=== PATIENT | male | born 1970 | race African-American/Black ===

== ENCOUNTER 2016-10-30 19:56 | Emergency (ER) | payer OTHER ==
--- NOTE | 2016-10-30 21:23 | ED CLINICAL REPORT ---
Clinical Report - Physicians/Mid Levels [facility] [address] [place] [address] 10/30/2016 19:57 Patient: SOFIA ROBERSON Time Seen: 20:03. Arrived- By private vehicle. Historian- patient. HISTORY OF PRESENT ILLNESS Chief Complaint: DYSPNEA and HISTORY OF ASTHMA. This started today and is still present. It was abrupt in onset and has been constant. The dyspnea is described as moderate. He has had dyspnea at rest. The patient has had a cough. No chest pain or discomfort. See nurses notes for current asthma threapy. Asthma triggers: allergies and exercise. Takes asthma medications. Similar symptoms previously: REVIEW OF SYSTEMS No chills, fever, calf pain, chest pain or pedal edema. No palpitations, abdominal pain, constipation, diarrhea or nausea. No vomiting or urinary problems. All systems otherwise negative, except as recorded above. PAST HISTORY Problems: Otitis Media. Hypertension. Allergic Rhinitis. Back Pain. Bronchitis. Asthma. Additional Surgeries: Biopsy neck lymph node. Lap band. Medications: Insulin. Aspirin Oral (Tablet 81 mg) 1 tablet, daily. Januvia Oral, daily. Carvedilol Phosphate ER Oral, daily. Albuterol Sulfate Inhalation 2 puffs, PRN. Allergies: No Known Drug Allergy. SOCIAL HISTORY Never smoker. Occasional alcohol use. No drug use. FAMILY HISTORY Denies family medical history. ADDITIONAL NOTES The nursing notes have been reviewed. PHYSICAL EXAM Vital Signs: 10/30/2016 20:02 BP: 168/105. HR: 105. RR: 20. O2 saturation: 96%. Temp: 98.8 F. Pain level now: 0/10. Have been reviewed. Appearance: Alert. Eyes: Pupils equal, round and reactive to light. ENT: Pharynx normal. Uvula midline. Neck: Normal inspection. Neck supple. No JVD. CVS: Normal heart rate and rhythm. Heart sounds normal. Respiratory: Prolonged expirations. Decreased air movement. Wheezing present. Abdomen: Soft and nontender. No organomegaly. Back: Normal inspection. Skin: Skin warm and dry. Normal skin color. Normal skin turgor. Extremities: Extremities exhibit normal ROM. No calf tenderness. No lower extremity edema. PROGRESS AND PROCEDURES Course of Care: Symptoms better. Vital signs have been reviewed. Physical exam findings are improved. Alert. No acute distress. Breath sounds normal. No respiratory distress. Normal heart rate and rhythm. Heart sounds normal. Abdomen soft and nontender. Skin warm and dry. Patient/family counseled. Old medical records ordered. Disposition: Discharged. Condition: stable. CLINICAL IMPRESSION Asthma with an acute exacerbation. Hypertension. INSTRUCTIONS Warnings: Further evaluation is necessary. GENERAL WARNINGS: Return or contact your physician immediately if your condition worsens or changes unexpectedly, if not improving as expected, or if other problems arise. Your Current Medications: CONTINUE TAKING THE FOLLOWING MEDICATIONS: Albuterol Sulfate Inhalation : 2 puffs PRN. Aspirin Oral : Tablet 81 mg, 1 tablet daily. Carvedilol Phosphate ER Oral : daily. Insulin*. Januvia Oral : daily. Prescription Medications: Prednisone 20 mg: take 3 orally every day for 4 days. No refills. (12 pills to complete the course that was started in the emergency room. Start this prescription on October 31, 2016 as discussed.) Follow-up: Follow up with your doctor in four days. Call for an appointment. Understanding of the discharge instructions verbalized by patient. (Electronically signed by Radames Mcmillan MD 11/01/2016 0:15)
--- NOTE | 2016-10-30 21:23 | ED NURSING NOTES ---
Clinical Report - Nurses [place] [address] [place] [address] 10/30/2016 19:57 Patient: SOFIA ROBERSON TRIAGE Triage time 20:02. Acuity: LEVEL 3. Chief Complaint: SHORTNESS OF BREATH and DIFFICULTY BREATHING. --20:11 Kitty Ellsworth R.N. 20:02 10/30/16. BP: 168/105. HR: 105 (regular and tachycardic). RR: 20 (regular and unlabored). O2 saturation: 96% on room air. Temp: 98.8 F. Pain level now: 0/10. --20:11 Kitty Ellsworth R.N. Weight: 102 kg stated. Height/Length: 66 inches Per Patient. BMI: 36.3. --20:03 Kitty Ellsworth R.N. Medications Albuterol Sulfate Inhalation 2 puffs, PRN. --20:06 Kitty Ellsworth R.N. Carvedilol Phosphate ER Oral, daily. --20:06 Kitty Ellsworth R.N. Januvia Oral, daily. --20:07 Kitty Ellsworth R.N. Aspirin Oral (Tablet 81 mg) 1 tablet, daily. --20:08 Kitty Ellsworth R.N. Insulin. --20:09 Kitty Ellsworth R.N. Allergies No Known Drug Allergy. --20:09 Kitty Ellsworth R.N. History Arrived by private vehicle. Historian: patient. Unaccompanied. Primary physician (elena). This started just prior to arrival. ( tiff shannon, hx of asthma became SOB, sneezing and coughing, able to speak in full sentences). Treatment [employer]: (albuterol inhaler). PAST MEDICAL HX: Immunizations: up-to-date. SOCIAL HX: Never smoker. Occasional alcohol use. No drug use. No infectious disease exposure. ABUSE ASSESSMENT: No report of abuse. SELF HARM ASSESSMENT: A self harm assessment was performed. The patient answered "no" to the question "Have you recently felt down, depressed, or hopeless?", "Have you noticed less interest or pleasure in doing things?", "Do you have thoughts of harming or killing yourself?", "Are you here because you tried to hurt yourself?", "Have you ever tried to hurt yourself before today?", "Have you recently had thoughts about harming or killing others?" and "Do you have any dangerous items in your possession?". FALL RISK ASSESSMENT: Fall risk assessment completed. No fall risk identified. NUTRITIONAL RISK ASSESSMENT: The nutritional risk assessment revealed no deficiencies. FUNCTIONAL ASSESSMENT: Functional assessment: no impairments noted. LEARNING NEEDS ASSESSMENT: The learning needs assessment revealed no barriers. SKIN INTEGRITY ASSESSMENT: Skin integrity risk assessment completed. No skin integrity risk identified. --20:11 Kitty Ellsworth R.N. PROBLEMS: Otitis Media. Hypertension. Allergic Rhinitis. Back Pain. Bronchitis. Asthma. --20:09 Kitty Ellsworth R.N. ADDITIONAL SURGERIES: Biopsy neck lymph node. Lap band. --20:09 Kitty Ellsworth R.N. Interventions ID band on patient. --20:11 Kitty Ellsworth R.N. PHYSICAL ASSESSMENT Ambulatory to room. GENERAL / NEURO / PSYCH: Alert. Oriented X 4. Appears in no acute distress. HEENT: Mucous membranes are pink. RESPIRATORY: No respiratory distress. Respirations not labored. Chest nontender. Decreased breath sounds in the bases bilaterally. CVS: Normal sinus rhythm noted. Capillary refill less than 2 seconds. GI / : Abdomen soft and nontender. Bowel sounds within normal limits. SKIN: Skin is warm and dry. Normal skin turgor. --20:11 Kitty Ellsworth R.N. NURSING PROGRESS NOTES Patient gowned. Reassurance given to the patient. Two patient identifiers checked. Call light placed in reach. Side rails up x 1. Bed placed in lowest position. Brakes of bed on. --20:12 Kitty Ellsworth R.N. Patient ready for evaluation- chart flagged. --20:12 Kitty Ellsworth R.N. 20:47 10/30/2016 Prednisone PO Tablets 60 mg given. Allergies verified and confirmed 5 rights. --20:47 Kitty Ellsworth R.N. 20:47 10/30/2016 Clonidine PO Tablets 0.2 mg given. Allergies verified and confirmed 5 rights. --20:47 Kitty Ellsworth R.N. The patient reports no complaints and he is calm and resting quietly. Overall patient status is improved- he states feels better. ( Resp at bedside for breathing treatment). RESPIRATORY: No respiratory distress. Decreased breath sounds in the bases bilaterally. SKIN: Skin is warm and dry. Skin color within normal limits. --20:53 Kitty Ellsworth R.N. 20:45 10/30/16. BP: 158/98 taken on the left arm, while lying. HR: 97 (regular). RR: 18. O2 saturation: 97% on room air. Temp: deferred. Pain level now: 0/10. --20:53 Kitty Ellsworth R.N. 20:50 10/30/2016 Duoneb (Ipratropium-Albuterol) Neb TX Nebulizer 1 unit dose given. Given by the respiratory therapist. Allergies verified and confirmed 5 rights. --20:54 Kitty Ellsworth R.N. The patient reports no complaints. Overall patient status is improved- he states feels better. RESPIRATORY: No respiratory distress. Breath sounds normal. SKIN: Skin is warm and dry. Skin color within normal limits. --21:23 Kitty Ellsworth R.N. 21:22 10/30/16. BP: 164/96 taken on the left arm, while lying. HR: 82 (regular and normal rate). RR: 18 (regular and unlabored). O2 saturation: 100% on room air. Temp: deferred. --21:23 Kitty Ellsworth R.N. DISPOSITION / DISCHARGE Departure time: 2126. Condition at departure: improved and stable. No learning barriers present. Discharge instructions provided and reviewed with the patient. Reviewed medication(s) side effects, precautions, dosing and course information. Prescription(s) given to the patient. Patient verbalized understanding. Written instructions provided in Albanian. The patient was discharged home and unaccompanied at time of discharge. He left the Emergency Department ambulatory and via private vehicle. --21:34 Kitty Ellsworth R.N. 21:31 10/30/16. BP: deferred. HR: deferred. RR: deferred. O2 saturation: deferred. Temp: deferred. Pain level now deferred. --21:34 Kitty Ellsworth R.N. Locked/Released at 10/30/2016 21:34 by Kitty Ellsworth R.N.
--- NOTE | 2016-10-30 21:23 | ED ORDER SUMMARY ---
..... Patient: SOFIA ROBERSON OrderSheet [facility] VisitID: [id number] [place] [address] 46y, M Registration Date/Time: 10/30/2016 ORDER SHEET Weight: 102.0 kg (stated) Allergies: No Known Drug Allergy GENERAL ORDERS: RT Evaluation Stat (20:38 10/30/2016 Sabrina CLINTON) (Ack 20:38 RKaruga) (20:47 Sandra R.N.) MEDICATION ORDERS: DuoNeb Neb Tx 1 unit dose (NOW) (20:37 10/30/2016 Sabrina CLINTON) (20:54 CBjairo R.N.) Prednisone PO 60 mg (NOW) (20:37 10/30/2016 Sabrina CLINTON) (Ack 20:43 Sandra R.N.) (20:47 Sandra R.N.) Clonidine PO 0.2 mg (NOW) (20:37 10/30/2016 Sabrina CLINTON) (Ack 20:43 Sandra R.N.) (20:47 Sandra R.N.) IV FLUIDS: ORDER SHEET NOTES: [Electronically signed by Kitty Ellsworth R.N. (21:34 10/30/2016)] [Electronically signed by Radames Mcmillan MD (00:15 11/01/2016)] [Electronically locked/signed by Kitty Ellsworth R.N. (21:34 10/30/2016)]
--- NOTE | 2016-10-30 21:23 | ED ORDER SUMMARY ---
..... Patient: SOFIA ROBERSON OrderSheet [facility] VisitID: [id number] [place] [address] 46y, M Registration Date/Time: 10/30/2016 ORDER SHEET Weight: 102.0 kg (stated) Allergies: No Known Drug Allergy GENERAL ORDERS: RT Evaluation Stat (20:38 10/30/2016 Sabrina CLINTON) (Ack 20:38 RKaruga) (20:47 Sandra R.N.) MEDICATION ORDERS: DuoNeb Neb Tx 1 unit dose (NOW) (20:37 10/30/2016 Sabrina CLINTON) (20:54 CBjairo R.N.) Prednisone PO 60 mg (NOW) (20:37 10/30/2016 Sabrina CLINTON) (Ack 20:43 Sandra R.N.) (20:47 Sandra R.N.) Clonidine PO 0.2 mg (NOW) (20:37 10/30/2016 Sabrina CLINTON) (Ack 20:43 Sandra R.N.) (20:47 Sandra R.N.) IV FLUIDS: ORDER SHEET NOTES: [Electronically signed by Kitty Ellsworth R.N. (21:34 10/30/2016)] [Electronically signed by Radames Mcmillan MD (00:15 11/01/2016)] [Electronically locked/signed by Kitty Ellsworth R.N. (21:34 10/30/2016)]
--- NOTE | 2016-10-30 21:23 | ED CLINICAL REPORT ---
Clinical Report - Physicians/Mid Levels [facility] [address] [place] [address] 10/30/2016 19:57 Patient: SOFIA ROBERSON Time Seen: 20:03. Arrived- By private vehicle. Historian- patient. HISTORY OF PRESENT ILLNESS Chief Complaint: DYSPNEA and HISTORY OF ASTHMA. This started today and is still present. It was abrupt in onset and has been constant. The dyspnea is described as moderate. He has had dyspnea at rest. The patient has had a cough. No chest pain or discomfort. See nurses notes for current asthma threapy. Asthma triggers: allergies and exercise. Takes asthma medications. Similar symptoms previously: REVIEW OF SYSTEMS No chills, fever, calf pain, chest pain or pedal edema. No palpitations, abdominal pain, constipation, diarrhea or nausea. No vomiting or urinary problems. All systems otherwise negative, except as recorded above. PAST HISTORY Problems: Otitis Media. Hypertension. Allergic Rhinitis. Back Pain. Bronchitis. Asthma. Additional Surgeries: Biopsy neck lymph node. Lap band. Medications: Insulin. Aspirin Oral (Tablet 81 mg) 1 tablet, daily. Januvia Oral, daily. Carvedilol Phosphate ER Oral, daily. Albuterol Sulfate Inhalation 2 puffs, PRN. Allergies: No Known Drug Allergy. SOCIAL HISTORY Never smoker. Occasional alcohol use. No drug use. FAMILY HISTORY Denies family medical history. ADDITIONAL NOTES The nursing notes have been reviewed. PHYSICAL EXAM Vital Signs: 10/30/2016 20:02 BP: 168/105. HR: 105. RR: 20. O2 saturation: 96%. Temp: 98.8 F. Pain level now: 0/10. Have been reviewed. Appearance: Alert. Eyes: Pupils equal, round and reactive to light. ENT: Pharynx normal. Uvula midline. Neck: Normal inspection. Neck supple. No JVD. CVS: Normal heart rate and rhythm. Heart sounds normal. Respiratory: Prolonged expirations. Decreased air movement. Wheezing present. Abdomen: Soft and nontender. No organomegaly. Back: Normal inspection. Skin: Skin warm and dry. Normal skin color. Normal skin turgor. Extremities: Extremities exhibit normal ROM. No calf tenderness. No lower extremity edema. PROGRESS AND PROCEDURES Course of Care: Symptoms better. Vital signs have been reviewed. Physical exam findings are improved. Alert. No acute distress. Breath sounds normal. No respiratory distress. Normal heart rate and rhythm. Heart sounds normal. Abdomen soft and nontender. Skin warm and dry. Patient/family counseled. Old medical records ordered. Disposition: Discharged. Condition: stable. CLINICAL IMPRESSION Asthma with an acute exacerbation. Hypertension. INSTRUCTIONS Warnings: Further evaluation is necessary. GENERAL WARNINGS: Return or contact your physician immediately if your condition worsens or changes unexpectedly, if not improving as expected, or if other problems arise. Your Current Medications: CONTINUE TAKING THE FOLLOWING MEDICATIONS: Albuterol Sulfate Inhalation : 2 puffs PRN. Aspirin Oral : Tablet 81 mg, 1 tablet daily. Carvedilol Phosphate ER Oral : daily. Insulin*. Januvia Oral : daily. Prescription Medications: Prednisone 20 mg: take 3 orally every day for 4 days. No refills. (12 pills to complete the course that was started in the emergency room. Start this prescription on October 31, 2016 as discussed.) Follow-up: Follow up with your doctor in four days. Call for an appointment. Understanding of the discharge instructions verbalized by patient. (Electronically signed by Radames Mcmillan MD 11/01/2016 0:15)
--- NOTE | 2016-11-01 00:16 | ED DISCHARGE INSTRUCTIONS ---
Patient: SOFIA ROBERSON General Instructions [facility] VisitID: [id number] [place] [address] 46y, M Registration Date/Time: 10/30/2016 Asthma with an acute exacerbation. Hypertension. INSTRUCTIONS Warnings: Further evaluation is necessary. GENERAL WARNINGS: Return or contact your physician immediately if your condition worsens or changes unexpectedly, if not improving as expected, or if other problems arise. Your Current Medications: CONTINUE TAKING THE FOLLOWING MEDICATIONS: Albuterol Sulfate Inhalation : 2 puffs PRN. Aspirin Oral : Tablet 81 mg, 1 tablet daily. Carvedilol Phosphate ER Oral : daily. Insulin*. Januvia Oral : daily. Prescription Medications: Prednisone 20 mg: take 3 orally every day for 4 days. No refills. (12 pills to complete the course that was started in the emergency room. Start this prescription on October 31, 2016 as discussed.) Follow-up: Follow up with your doctor in four days. Call for an appointment. Understanding of the discharge instructions verbalized by patient. ADDITIONAL INFORMATION Asthma [Adult] Asthma is a disease where the small air passages within the lung go into spasm and restrict the flow of air. Inflammation and swelling of the airways cause further restriction. During an acute asthma attack, these factors cause difficulty breathing, wheezing, cough and chest tightness. An asthma attack can be triggered by many things. Common triggers include the common cold, bronchitis, pneumonia, irritants such as smoke or pullutants in the air, emotional upset and heavy exercise. Inmany adults with asthma, allergies todust, mold, pollen and animal dander can cause an asthma attack. Skipping doses of daily asthma medicine can also bring on an asthma attack. Asthma can be controlled with proper medicines and decreased exposure to known allergens. Home Care: Take prescribed medicine exactly at the times advised. If you have a hand-held inhaler or aerosol breathing medicine, do not use it more than once every four hours, unless told to do so. (If you need this medicine more than every four hours, you may need to return to the Emergency Room.) If prescribed an antibiotic or prednisone, take all of the medicine even if you are feeling better after a few days. Do not smoke. Avoid being exposed to the smoke of others. Some persons with asthma have worsening of their symptoms when they take aspirin and non-steroidal medicines like ibuprofen (Motrin, Advil) and naproxen (Aleve, Naprosyn). Talk to your doctor if you think this may apply to you. Acetaminophen (Tylenol)should be safe to use. Follow Up with your doctor, or as advised by our staff. Always bring all of your current medicines with you for your doctor to see. If you do not already have one, talk to your doctor about developing a personalized "Asthma Action Plan." [NOTE: A pneumococcal vaccine and yearly flu shot (every fall) are recommended. Ask your doctor about this.] Get Prompt Medical Attention if any of the following occur: Increased wheezing or shortness of breath Need to use your inhalers more often than usual without relief Fever of 100.4F (38C) or higher, or as directed by your healthcare provider Coughing up lots of dark-colored or bloody sputum (mucus) Chest pain with each breath You do not start to improve within 24 hours Call 911 If Any Of The Following Occur : Trouble walking or talking because of shortness of breath If you use a peak flow meter andyou are still in the red zone (less than 50 percent) 15 minutes after using inhaler medication Lips or fingernails turning fraser or blue Hypertension, Out Of Control (Established) Your blood pressure was unusually high today. This can occur as a result of missing doses of your blood pressure medicine. Some asthma inhalers, decongestants, diet pills, and street drugs such as cocaine and amphetamine can worsen hypertension. An increase in body weight, increase in salt intake, smoking, and caffeine are other causes. Emotional upset or acute pain can cause a sudden rapid rise in blood pressure which may return to normal after a period of rest. A normal blood pressure is less than 140/90. The first (top) number is the systolic pressure. The second (bottom) number is the diastolic pressure. Hypertension exists when either the top number is 140 or higher, OR the bottom number is 90 or higher on repeated measurements. Home Care: All patients with high blood pressure should do the following to lower their pressure. If you are on blood pressure medicines, then these methods may reduce or eliminate your need for medicines in the future. Begin a weight-loss program if you are overweight. Reduce your salt intake. Avoid high-salt foods (olives, pickles, smoked meats, salted potato chips, etc.). Do not add salt to your food at the table. Use only small amounts of salt when cooking. Begin an exercise program. Discuss with your doctor what type of exercise program would be best for you. It doesnt have to be difficult. Even brisk walking for 20 minutes3 times a week is a good form of exercise. Avoid medicines which contain heart stimulants. This includes many cold and sinus decongestant pills and sprays as well as diet pills. Check the warnings about hypertension on the label. Stimulants such as amphetamine or cocaine could be lethal for someone with hypertension. Never take these. Limit your caffeine intake or switch to decaf. Stop smoking. If you are a long-time smoker, this can be hard. Enroll in a stop-smoking program to improve your chance of success. Talk to your physician about ways to improve your chance of success. Learning how to handle stress better is an important part of any program to lower blood pressure. Learn about relaxation methods such as meditation, yoga, or biofeedback. If medicines were prescribed, take them exactly as directed. Missing doses may cause your blood pressure to get out of control. Consider buying an automatic blood pressure machine (available at many pharmacies). Use this to monitor your blood pressure and report to your doctor. Follow Up: Regular visits to your own doctor for blood pressure checks and medicine adjustment is an important part of your care. Make a follow-up appointment as directed by our staff. Get Prompt Medical Attention if any of the following occur: Chest, arm, shoulder, neck, or upper back pain Shortness of breath Severe headache Throbbing or rushing sound in the ears Nosebleed Extreme drowsiness, confusion, or fainting Dizziness or vertigo (dizziness with spinning sensation) Weakness of an arm or leg or one side of the face Difficulty with speech or vision Prednisone Oral tablet What is this medicine? PREDNISONE (PRED ni sone) is a corticosteroid. It is commonly used to treat inflammation of the skin, joints, lungs, and other organs. Common conditions treated include asthma, allergies, and arthritis. It is also used for other conditions, such as blood disorders and diseases of the adrenal glands. How should I use this medicine? Take this medicine by mouth with a glass of water. Follow the directions on the prescription label. Take this medicine with food. If you are taking this medicine once a day, take it in the morning. Do not take more medicine than you are told to take. Do not suddenly stop taking your medicine because you may develop a severe reaction. Your doctor will tell you how much medicine to take. If your doctor wants you to stop the medicine, the dose may be slowly lowered over time to avoid any side effects. Talk to your inter com servicer regarding the use of this medicine in children. Special care may be needed. What side effects may I notice from receiving this medicine? Side effects that you should report to your doctor or health toddler caregiver as soon as possible: allergic reactions like skin rash, itching or hives, swelling of the face, lips, or tongue changes in emotions or moods changes in vision depressed mood eye pain fever or chills, cough, sore throat, pain or difficulty passing urine increased thirst swelling of ankles, feet Side effects that usually do not require medical attention (report to your doctor or health toddler caregiver if they continue or are bothersome): confusion, excitement, restlessness headache nausea, vomiting skin problems, acne, thin and shiny skin trouble sleeping weight gain What may interact with this medicine? Do not take this medicine with any of the following medications: metyrapone mifepristone This medicine may also interact with the following medications: aminoglutethimide amphotericin B aspirin and aspirin-like medicines barbiturates certain medicines for diabetes, like glipizide or glyburide cholestyramine cholinesterase inhibitors cyclosporine digoxin diuretics ephedrine female hormones, like estrogens and control pills isoniazid ketoconazole NSAIDS, medicines for pain and inflammation, like ibuprofen or naproxen phenytoin rifampin toxoids vaccines warfarin What if I miss a dose? If you miss a dose, take it as soon as you can. If it is almost time for your next dose, talk to your doctor or health toddler caregiver. You may need to miss a dose or take an extra dose. Do not take double or extra doses without advice. Where should I keep my medicine? Keep out of the reach of children. Store at room temperature between 15 and 30 degrees C (59 and 86 degrees F). Protect from light. Keep container tightly closed. Throw away any unused medicine after the expiration date. What should I tell my health care provider before I take this medicine? They need to know if you have any of these conditions: [place]'s syndrome diabetes glaucoma heart disease high blood pressure infection (especially a virus infection such as chickenpox, cold sores, or herpes) kidney disease liver disease mental illness myasthenia gravis osteoporosis seizures stomach or intestine problems thyroid disease an unusual or allergic reaction to lactose, prednisone, other medicines, foods, dyes, or preservatives or trying to get breast-feeding What should I watch for while using this medicine? Visit your doctor or health toddler caregiver for regular checks on your progress. If you are taking this medicine over a prolonged period, carry an identification card with your name and address, the type and dose of your medicine, and your doctor's name and address. This medicine may increase your risk of getting an infection. Tell your doctor or health toddler caregiver if you are around anyone with measles or chickenpox, or if you develop sores or blisters that do not heal properly. If you are going to have surgery, tell your doctor or health toddler caregiver that you have taken this medicine within the last twelve months. Ask your doctor or health toddler caregiver about your diet. You may need to lower the amount of salt you eat. This medicine may affect blood sugar levels. If you have diabetes, check with your doctor or health toddler caregiver before you change your diet or the dose of your diabetic medicine. You have been given the following additional information: Asthma, Acute (Adult) Hypertension, Established, Out Of Control Prednisone Oral tablet (Electronically signed by Radames Mcmillan MD 11/01/2016 0:15)
--- NOTE | 2016-11-01 00:16 | ED DISCHARGE INSTRUCTIONS ---
Patient: SOFIA ROBERSON General Instructions [facility] VisitID: [id number] [place] [address] 46y, M Registration Date/Time: 10/30/2016 Asthma with an acute exacerbation. Hypertension. INSTRUCTIONS Warnings: Further evaluation is necessary. GENERAL WARNINGS: Return or contact your physician immediately if your condition worsens or changes unexpectedly, if not improving as expected, or if other problems arise. Your Current Medications: CONTINUE TAKING THE FOLLOWING MEDICATIONS: Albuterol Sulfate Inhalation : 2 puffs PRN. Aspirin Oral : Tablet 81 mg, 1 tablet daily. Carvedilol Phosphate ER Oral : daily. Insulin*. Januvia Oral : daily. Prescription Medications: Prednisone 20 mg: take 3 orally every day for 4 days. No refills. (12 pills to complete the course that was started in the emergency room. Start this prescription on October 31, 2016 as discussed.) Follow-up: Follow up with your doctor in four days. Call for an appointment. Understanding of the discharge instructions verbalized by patient. ADDITIONAL INFORMATION Asthma [Adult] Asthma is a disease where the small air passages within the lung go into spasm and restrict the flow of air. Inflammation and swelling of the airways cause further restriction. During an acute asthma attack, these factors cause difficulty breathing, wheezing, cough and chest tightness. An asthma attack can be triggered by many things. Common triggers include the common cold, bronchitis, pneumonia, irritants such as smoke or pullutants in the air, emotional upset and heavy exercise. Inmany adults with asthma, allergies todust, mold, pollen and animal dander can cause an asthma attack. Skipping doses of daily asthma medicine can also bring on an asthma attack. Asthma can be controlled with proper medicines and decreased exposure to known allergens. Home Care: Take prescribed medicine exactly at the times advised. If you have a hand-held inhaler or aerosol breathing medicine, do not use it more than once every four hours, unless told to do so. (If you need this medicine more than every four hours, you may need to return to the Emergency Room.) If prescribed an antibiotic or prednisone, take all of the medicine even if you are feeling better after a few days. Do not smoke. Avoid being exposed to the smoke of others. Some persons with asthma have worsening of their symptoms when they take aspirin and non-steroidal medicines like ibuprofen (Motrin, Advil) and naproxen (Aleve, Naprosyn). Talk to your doctor if you think this may apply to you. Acetaminophen (Tylenol)should be safe to use. Follow Up with your doctor, or as advised by our staff. Always bring all of your current medicines with you for your doctor to see. If you do not already have one, talk to your doctor about developing a personalized "Asthma Action Plan." [NOTE: A pneumococcal vaccine and yearly flu shot (every fall) are recommended. Ask your doctor about this.] Get Prompt Medical Attention if any of the following occur: Increased wheezing or shortness of breath Need to use your inhalers more often than usual without relief Fever of 100.4F (38C) or higher, or as directed by your healthcare provider Coughing up lots of dark-colored or bloody sputum (mucus) Chest pain with each breath You do not start to improve within 24 hours Call 911 If Any Of The Following Occur : Trouble walking or talking because of shortness of breath If you use a peak flow meter andyou are still in the red zone (less than 50 percent) 15 minutes after using inhaler medication Lips or fingernails turning fraser or blue Hypertension, Out Of Control (Established) Your blood pressure was unusually high today. This can occur as a result of missing doses of your blood pressure medicine. Some asthma inhalers, decongestants, diet pills, and street drugs such as cocaine and amphetamine can worsen hypertension. An increase in body weight, increase in salt intake, smoking, and caffeine are other causes. Emotional upset or acute pain can cause a sudden rapid rise in blood pressure which may return to normal after a period of rest. A normal blood pressure is less than 140/90. The first (top) number is the systolic pressure. The second (bottom) number is the diastolic pressure. Hypertension exists when either the top number is 140 or higher, OR the bottom number is 90 or higher on repeated measurements. Home Care: All patients with high blood pressure should do the following to lower their pressure. If you are on blood pressure medicines, then these methods may reduce or eliminate your need for medicines in the future. Begin a weight-loss program if you are overweight. Reduce your salt intake. Avoid high-salt foods (olives, pickles, smoked meats, salted potato chips, etc.). Do not add salt to your food at the table. Use only small amounts of salt when cooking. Begin an exercise program. Discuss with your doctor what type of exercise program would be best for you. It doesnt have to be difficult. Even brisk walking for 20 minutes3 times a week is a good form of exercise. Avoid medicines which contain heart stimulants. This includes many cold and sinus decongestant pills and sprays as well as diet pills. Check the warnings about hypertension on the label. Stimulants such as amphetamine or cocaine could be lethal for someone with hypertension. Never take these. Limit your caffeine intake or switch to decaf. Stop smoking. If you are a long-time smoker, this can be hard. Enroll in a stop-smoking program to improve your chance of success. Talk to your physician about ways to improve your chance of success. Learning how to handle stress better is an important part of any program to lower blood pressure. Learn about relaxation methods such as meditation, yoga, or biofeedback. If medicines were prescribed, take them exactly as directed. Missing doses may cause your blood pressure to get out of control. Consider buying an automatic blood pressure machine (available at many pharmacies). Use this to monitor your blood pressure and report to your doctor. Follow Up: Regular visits to your own doctor for blood pressure checks and medicine adjustment is an important part of your care. Make a follow-up appointment as directed by our staff. Get Prompt Medical Attention if any of the following occur: Chest, arm, shoulder, neck, or upper back pain Shortness of breath Severe headache Throbbing or rushing sound in the ears Nosebleed Extreme drowsiness, confusion, or fainting Dizziness or vertigo (dizziness with spinning sensation) Weakness of an arm or leg or one side of the face Difficulty with speech or vision Prednisone Oral tablet What is this medicine? PREDNISONE (PRED ni sone) is a corticosteroid. It is commonly used to treat inflammation of the skin, joints, lungs, and other organs. Common conditions treated include asthma, allergies, and arthritis. It is also used for other conditions, such as blood disorders and diseases of the adrenal glands. How should I use this medicine? Take this medicine by mouth with a glass of water. Follow the directions on the prescription label. Take this medicine with food. If you are taking this medicine once a day, take it in the morning. Do not take more medicine than you are told to take. Do not suddenly stop taking your medicine because you may develop a severe reaction. Your doctor will tell you how much medicine to take. If your doctor wants you to stop the medicine, the dose may be slowly lowered over time to avoid any side effects. Talk to your tool and die supervisor regarding the use of this medicine in children. Special care may be needed. What side effects may I notice from receiving this medicine? Side effects that you should report to your doctor or health daycare provider as soon as possible: allergic reactions like skin rash, itching or hives, swelling of the face, lips, or tongue changes in emotions or moods changes in vision depressed mood eye pain fever or chills, cough, sore throat, pain or difficulty passing urine increased thirst swelling of ankles, feet Side effects that usually do not require medical attention (report to your doctor or health daycare provider if they continue or are bothersome): confusion, excitement, restlessness headache nausea, vomiting skin problems, acne, thin and shiny skin trouble sleeping weight gain What may interact with this medicine? Do not take this medicine with any of the following medications: metyrapone mifepristone This medicine may also interact with the following medications: aminoglutethimide amphotericin B aspirin and aspirin-like medicines barbiturates certain medicines for diabetes, like glipizide or glyburide cholestyramine cholinesterase inhibitors cyclosporine digoxin diuretics ephedrine female hormones, like estrogens and control pills isoniazid ketoconazole NSAIDS, medicines for pain and inflammation, like ibuprofen or naproxen phenytoin rifampin toxoids vaccines warfarin What if I miss a dose? If you miss a dose, take it as soon as you can. If it is almost time for your next dose, talk to your doctor or health daycare provider. You may need to miss a dose or take an extra dose. Do not take double or extra doses without advice. Where should I keep my medicine? Keep out of the reach of children. Store at room temperature between 15 and 30 degrees C (59 and 86 degrees F). Protect from light. Keep container tightly closed. Throw away any unused medicine after the expiration date. What should I tell my health care provider before I take this medicine? They need to know if you have any of these conditions: [place]'s syndrome diabetes glaucoma heart disease high blood pressure infection (especially a virus infection such as chickenpox, cold sores, or herpes) kidney disease liver disease mental illness myasthenia gravis osteoporosis seizures stomach or intestine problems thyroid disease an unusual or allergic reaction to lactose, prednisone, other medicines, foods, dyes, or preservatives or trying to get breast-feeding What should I watch for while using this medicine? Visit your doctor or health daycare provider for regular checks on your progress. If you are taking this medicine over a prolonged period, carry an identification card with your name and address, the type and dose of your medicine, and your doctor's name and address. This medicine may increase your risk of getting an infection. Tell your doctor or health daycare provider if you are around anyone with measles or chickenpox, or if you develop sores or blisters that do not heal properly. If you are going to have surgery, tell your doctor or health daycare provider that you have taken this medicine within the last twelve months. Ask your doctor or health daycare provider about your diet. You may need to lower the amount of salt you eat. This medicine may affect blood sugar levels. If you have diabetes, check with your doctor or health daycare provider before you change your diet or the dose of your diabetic medicine. You have been given the following additional information: Asthma, Acute (Adult) Hypertension, Established, Out Of Control Prednisone Oral tablet (Electronically signed by Radames Mcmillan MD 11/01/2016 0:15)
--- NOTE | 2016-11-01 00:16 | ED MAR SUMMARY ---
..... Medication Administration Record [facility] [address] [address] Patient: SOFIA ROBERSON Visit ID: [id number] 46y, M Weight: 102.0 kg Height/Length: 66 in BMI: 36.3 ALLERGIES: No Known Drug Allergy Given 20:47 10/30/2016 Kitty Ellsworth R.N. Medication Administered: PREDNISONE [PO], Dose: 60 mg Tablets PO. Medication Ordered: Prednisone PO 60 mg (NOW). Given 20:47 10/30/2016 Kitty Ellsworth R.N. Medication Administered: CLONIDINE [PO], Dose: 0.2 mg Tablets PO. Medication Ordered: Clonidine PO 0.2 mg (NOW). Given 20:50 10/30/2016 Kitty Ellsworth R.N. Medication Administered: DUONEB [NEB TX] (IPRATROPIUM-ALBUTEROL), Dose: 1 unit dose Nebulizer Neb TX. Medication Ordered: DuoNeb Neb Tx 1 unit dose (NOW).
--- NOTE | 2016-11-01 00:16 | ED MAR SUMMARY ---
..... Medication Administration Record [facility] [address] [place] [address] Patient: SOFIA ROBERSON Visit ID: [id number] 46y, M Weight: 102.0 kg Height/Length: 66 in BMI: 36.3 ALLERGIES: No Known Drug Allergy Given 20:47 10/30/2016 Kitty Ellsworth R.N. Medication Administered: PREDNISONE [PO], Dose: 60 mg Tablets PO. Medication Ordered: Prednisone PO 60 mg (NOW). Given 20:47 10/30/2016 Kitty Ellsworth R.N. Medication Administered: CLONIDINE [PO], Dose: 0.2 mg Tablets PO. Medication Ordered: Clonidine PO 0.2 mg (NOW). Given 20:50 10/30/2016 Kitty Ellsworth R.N. Medication Administered: DUONEB [NEB TX] (IPRATROPIUM-ALBUTEROL), Dose: 1 unit dose Nebulizer Neb TX. Medication Ordered: DuoNeb Neb Tx 1 unit dose (NOW).
--- NOTE | 2016-11-01 00:16 | ED MED RECONCILIATION SUMMARY ---
Patient: SOFIA ROBERSON Medication Reconciliation Report [facility] VisitID: [id number] [place] [address] 46y, M Registration Date/Time: 10/30/2016 Weight: 102.0 kg Height/Length: 66 in. BMI: 36.3 ALLERGIES: No Known Drug Allergy The patient's Home Medications are listed below: CONTINUE TAKING THE FOLLOWING MEDICATIONS: Albuterol Sulfate Inhalation 2 puffs, PRN Aspirin Oral (81 mg) 1 tablet, daily Carvedilol Phosphate ER Oral, daily Insulin Januvia Oral, daily The source(s) of the original Home Medication information: Not obtained. The following Medications were given to the patient in the Emergency Department: Prednisone [PO] PO 60 mg, administered: 10/30/2016 8:47:00 PM Clonidine [PO] PO 0.2 mg, administered: 10/30/2016 8:47:00 PM Duoneb [Neb Tx] Neb TX 1 unit dose, administered: 10/30/2016 8:50:00 PM The following Medications were prescribed to the patient: Prednisone 20 mg: take 3 orally every day for 4 days. No refills.(12 pills to complete the course that was started in the emergency room. Start this prescription on October 31, 2016 as discussed.) -- Radames Mcmillan MD
--- NOTE | 2016-11-01 00:16 | ED MED RECONCILIATION SUMMARY ---
Patient: SOFIA ROBERSON Medication Reconciliation Report [facility] VisitID: [id number] [place] [address] 46y, M Registration Date/Time: 10/30/2016 Weight: 102.0 kg Height/Length: 66 in. BMI: 36.3 ALLERGIES: No Known Drug Allergy The patient's Home Medications are listed below: CONTINUE TAKING THE FOLLOWING MEDICATIONS: Albuterol Sulfate Inhalation 2 puffs, PRN Aspirin Oral (81 mg) 1 tablet, daily Carvedilol Phosphate ER Oral, daily Insulin Januvia Oral, daily The source(s) of the original Home Medication information: Not obtained. The following Medications were given to the patient in the Emergency Department: Prednisone [PO] PO 60 mg, administered: 10/30/2016 8:47:00 PM Clonidine [PO] PO 0.2 mg, administered: 10/30/2016 8:47:00 PM Duoneb [Neb Tx] Neb TX 1 unit dose, administered: 10/30/2016 8:50:00 PM The following Medications were prescribed to the patient: Prednisone 20 mg: take 3 orally every day for 4 days. No refills.(12 pills to complete the course that was started in the emergency room. Start this prescription on October 31, 2016 as discussed.) -- Radames Mcmillan MD
== END 2016-10-30 21:27 | disposition home or self-care (01) ==
LOC: ED SRH 19:56
DX: J45.901 Unspecified asthma with (acute) exacerbation (principal); I10 Essential (primary) hypertension; Z79.82 Long term (current) use of aspirin; Z79.899 Other long term (current) drug therapy